=== PATIENT | female | born 1940 | race Hispanic/Latino ===

== ENCOUNTER 2022-10-19 07:13 | Observation (INO) | payer MEDICARE ==
[~2022-10-19] VITALS: Ht 162.6 cm; Wt 73.4 kg
[2022-10-19 07:46] LABS: BASOPHILS % (AUTO) 1.1 % (0.0-5.0); EOSINOPHILS % (AUTO) 1.7 % (0.0-8.0); HEMATOCRIT 46.8 % (36-48); LYMPHOCYTES % (AUTO) 37.6 % (21.0-51.0); MEAN CORPUSCULAR HEMOGLOBIN 30.9 pg (27.0-33.0); MEAN CORPUSCULAR HGB CONC 34.2 g/dL (32.0-36.0); MEAN CORPUSCULAR VOLUME 90.3 fL (79-99); MONOCYTES % (AUTO) 8.7 % (3.0-13.0); NEUTROPHILS % (AUTO) 50.7 % (40.0-77.0); PLATELET COUNT (AUTO) 146 K/uL (130-400); RED BLOOD CELL COUNT(AUTO) 5.18 MIL/uL (4.00-5.50); RED CELL DISTRIBUTION WIDTH 12.8 % (11.0-15.5); WHITE BLOOD COUNT (AUTO) 4.7 K/uL (4.8-10.8)
[2022-10-19 08:05] LABS: ALBUMIN 3.9 g/dL (3.5-5.0); CREATININE 0.8 mg/dL (0.5-1.5); POTASSIUM 3.1 mmol/L (3.5-5.1); TOTAL PROTEIN, SERUM 6.9 g/dL (6.0-8.3)
[2022-10-19] MEDS ORDERED: INSULIN HUMULIN R 100 UNIT/ML 3ML IV ONE (09:00)
[2022-10-19] MEDS ORDERED: 0.9%NACL 1000ML 1,000 ML IV ONE (09:00)
[2022-10-19] MEDS ORDERED: PANTOPRAZOLE 40 MG/VIAL IVP ONE (09:00)
[2022-10-19] MEDS ORDERED: KCL 20 MEQ ERTAB PO ONE ×2 (10:00→14:00)
[2022-10-19] MEDS: MAGNESIUM OXIDE 400 MG TABLET PO SCH (10:07)
[2022-10-19] MEDS ORDERED: MORPHINE 2 MG SYG IVP ONE (10:30)
[2022-10-19] MEDS ORDERED: ONDANSETRON 4MG INJ IVP ONE (10:30)
[2022-10-19] MEDS ORDERED: SOLI5TAB6 PO (12:03)
[2022-10-19] MEDS ORDERED: DEXL60CA3 PO (12:03)
[2022-10-19] MEDS ORDERED: SERT-440 PO (12:03)
[2022-10-19] MEDS ORDERED: ERGO50CA PO (12:03)
[2022-10-19] MEDS ORDERED: HYDR12.54 PO (12:03)
[2022-10-19] MEDS ORDERED: LOSA50TA64 PO (12:03)
[2022-10-19 13:41] LABS: APPEARANCE,URINE CLEAR (CLEAR); BILIRUBIN,URINE NEGATIVE (NEGATIVE); COLOR,URINE YELLOW (YELLOW); GLUCOSE, URINE (UA) >=1000 mg/dL (NEGATIVE); KETONES,URINE 20 mg/dL (NEGATIVE); LEUKOCYTE ESTERASE ,URINE NEGATIVE Leu/uL (NEGATIVE); NITRATE,URINE NEGATIVE (NEGATIVE); OCCULT BLOOD,URINE NEGATIVE (NEGATIVE); PH,URINE 5.5 (5.0-8.0); PROTEIN,URINE 10 mg/dL (NEGATIVE)
[2022-10-19 13:44] LABS: MUCUS,URINE RARE LPF (None Seen); SQUAMOUS EPITHELIAL CELL,UR MOD /HPF (0-2)
[2022-10-19] MEDS ORDERED: ACETAMINOPHEN 325 MG TAB PO PRN (14:00)
[2022-10-19] MEDS ORDERED: MAGNESIUM 2GM PREMIX 50ML 50 ML IV SCH (14:00)
[2022-10-19] MEDS ORDERED: LACTULOSE 20 GM/30 ML UDCUP PO ONE (14:00)
[2022-10-19] MEDS: LUBIPROSTONE 24 MCG CAP PO SCH (14:06)
[2022-10-19 17:55] VITALS: BP 133/78
[2022-10-19 19:02] LABS: CREATININE 0.7 mg/dL (0.5-1.5); MAGNESIUM 2.2 mg/dL (1.80-2.40); POTASSIUM 3.5 mmol/L (3.5-5.1)
[2022-10-19 20:50] VITALS: BP 118/68
[2022-10-19] MEDS: ACETAMINOPHEN 325 MG TAB PO PRN (21:48)
[2022-10-19] MEDS: FAMOTIDINE 20MG VIAL IV SCH (21:51)
[2022-10-20 00:14] VITALS: BP 117/58
[2022-10-20 04:14] VITALS: BP 141/79
[2022-10-20 08:00] VITALS: BP 127/77
[2022-10-20] MEDS: ACETAMINOPHEN 325 MG TAB PO PRN (09:41)
[2022-10-20] MEDS: FAMOTIDINE 20MG VIAL IV SCH ×2 (09:42→21:03)
[2022-10-20 09:48] LABS: BASOPHILS % (AUTO) 0.9 % (0.0-5.0); EOSINOPHILS % (AUTO) 1.2 % (0.0-8.0); HEMATOCRIT 43.5 % (36-48); LYMPHOCYTES % (AUTO) 27.1 % (21.0-51.0); MEAN CORPUSCULAR HEMOGLOBIN 31.1 pg (27.0-33.0); MEAN CORPUSCULAR HGB CONC 33.8 g/dL (32.0-36.0); MONOCYTES % (AUTO) 6.5 % (3.0-13.0); NEUTROPHILS % (AUTO) 63.7 % (40.0-77.0); PLATELET COUNT (AUTO) 130 K/uL (130-400); RED BLOOD CELL COUNT(AUTO) 4.73 MIL/uL (4.00-5.50); WHITE BLOOD COUNT (AUTO) 3.4 K/uL (4.8-10.8)
[2022-10-20] MEDS: MAGNESIUM OXIDE 400 MG TABLET PO SCH (09:55)
[2022-10-20 09:56] LABS: HEMOGLOBIN A1C 9.8 % (4.0-6.0)
[2022-10-20 10:17] LABS: ALBUMIN 3.6 g/dL (3.5-5.0); CREATININE 0.8 mg/dL (0.5-1.5); MAGNESIUM 2.1 mg/dL (1.80-2.40); POTASSIUM 3.8 mmol/L (3.5-5.1); THYROID STIMULATING HORMONE 2.04 uIU/mL (0.36-3.74); TOTAL PROTEIN, SERUM 6.5 g/dL (6.0-8.3)
[2022-10-20] MEDS: ZOSYN 3.375GM +NS 50ML IV SCH ×2 (10:34→18:02)
[2022-10-20] MEDS: 0.9%NACL 1000ML 1,000 ML IV SCH ×2 (10:35→21:04)
[2022-10-20 11:00] VITALS: BP 127/81
[2022-10-20] MEDS: INSULIN HUMULIN R 100 UNIT/ML 3ML SQ SCH ×3 (11:30→21:00)
[2022-10-20] MEDS: LUBIPROSTONE 24 MCG CAP PO SCH (13:13)
[2022-10-20] MEDS: POLYETHYLENE GLYCOL 3350 17 GM POWD.PACK PO SCH (15:43)
[2022-10-20 16:00] VITALS: BP 133/53
[2022-10-20 19:00] VITALS: BP 145/82
[2022-10-21] VITALS: BP 133/80
[2022-10-21] MEDS: ZOSYN 3.375GM +NS 50ML IV SCH ×2 (02:14→10:10)
[2022-10-21 04:00] VITALS: BP 129/69
[2022-10-21] MEDS: 0.9%NACL 1000ML 1,000 ML IV SCH (06:01)
[2022-10-21 06:03] LABS: BASOPHILS % (AUTO) 0.5 % (0.0-5.0); HEMATOCRIT 39.5 % (36-48); LYMPHOCYTES % (AUTO) 23.9 % (21.0-51.0); MEAN CORPUSCULAR HEMOGLOBIN 31.4 pg (27.0-33.0); MEAN CORPUSCULAR HGB CONC 34.2 g/dL (32.0-36.0); MEAN CORPUSCULAR VOLUME 91.9 fL (79-99); MONOCYTES % (AUTO) 6.3 % (3.0-13.0); PLATELET COUNT (AUTO) 111 K/uL (130-400); WHITE BLOOD COUNT (AUTO) 3.8 K/uL (4.8-10.8)
[2022-10-21] MEDS: INSULIN HUMULIN R 100 UNIT/ML 3ML SQ SCH ×2 (06:04→11:30)
[2022-10-21 06:18] LABS: BILIRUBIN,DIRECT 0.2 mg/dL (0.0-0.3); CREATININE 0.6 mg/dL (0.5-1.5); TOTAL PROTEIN, SERUM 5.5 g/dL (6.0-8.3)
[2022-10-21] MEDS ORDERED: POTASSIUM CHLORIDE 20MEQ/100ML 100 ML IV PRN (07:00)
[2022-10-21] MEDS ORDERED: POTASSIUM CHLORIDE 10% ELIXIR 20 MEQ/15 ML UDCUP PO PRN (07:00)
[2022-10-21] MEDS: KCL 20 MEQ ERTAB PO PRN ×2 (07:09→10:10)
[2022-10-21 07:22] VITALS: BP 143/74
[2022-10-21] MEDS ORDERED: DEXILANT 60 MG PO SCH (09:00)
[2022-10-21] MEDS ORDERED: POLYETHYLENE GLYCOL 3350 17 GM POWD.PACK PO SCH (09:00)
[2022-10-21] MEDS ORDERED: SOLIFENACIN 5 MG PO SCH (09:00)
[2022-10-21] MEDS ORDERED: LOSARTAN 50 MG TABLET PO SCH (09:00)
[2022-10-21] MEDS ORDERED: SERTRALINE HCL 50 MG TABLET PO SCH (09:00)
[2022-10-21] MEDS: MAGNESIUM OXIDE 400 MG TABLET PO SCH (10:00)
[2022-10-21] MEDS: POLYETHYLENE GLYCOL 3350 17 GM POWD.PACK PO SCH (10:09)
[2022-10-21] MEDS: FAMOTIDINE 20MG VIAL IV SCH (10:09)
[2022-10-21] MEDS ORDERED: METF-444 PO (12:06)
[2022-10-21] MEDS ORDERED: AMOX-426 PO (12:08)
[2022-10-21] MEDS ORDERED: POLY17PO4 PO (12:08)
[2022-10-21 12:20] VITALS: BP 130/77
[2022-10-21 13:34] LABS: CREATININE 0.7 mg/dL (0.5-1.5)
[2022-10-21] MEDS: LUBIPROSTONE 24 MCG CAP PO SCH (13:34)
== END 2022-10-21 16:30 | disposition home or self-care (01) ==
LOC: EDH 07:13 → EDHIP 13:49 → 3BH 18:02
PROVIDERS: ADMIT Internal Medicine; ATTEND Internal Medicine
DX: K85.90 Acute pancreatitis without necrosis or infection, unspecified (principal); K56.41 Fecal impaction; K57.32 Diverticulitis of large intestine without perforation or abscess without bleeding; K42.9 Umbilical hernia without obstruction or gangrene; I10 Essential (primary) hypertension; E78.5 Hyperlipidemia, unspecified; K21.9 Gastro-esophageal reflux disease without esophagitis; I25.2 Old myocardial infarction; Z91.199 Patient's noncompliance with other medical treatment and regimen due to unspecified reason; Z95.5 Presence of coronary angioplasty implant and graft; Z79.899 Other long term (current) drug therapy
CPT/HCPCS: 96361 ×3; 96365; 96366 ×3; 96375; 99285; 83735 ×3; 84484; 80053 ×2; 83690 ×3; 85025 ×3; 81001; 36415 ×3; 71045; 74176; 93005; 96376 ×2; 96367; 83036; 84443; 80061; 82948 ×5; 76705; 80076; 80048 ×2; G0378 ×50; J3475; J3490 ×4; J7030; J2405; C9113; J1815 ×2; J2543 ×5; J3480